=== PATIENT | female | born 1965 | race American Indian/Alaskan Native ===

== ENCOUNTER 2017-07-04 07:29 | Outpatient (CLI) | payer OTHER ==
--- NOTE | 2017-07-04 16:41 | Magnetic Resonance Report ---
FINAL REPORT EXAM: MR LUMBAR SPINE WO CON HISTORY: RIGHT LOW BACK PAIN/POSSIBLE L4 RADICULITIS COMPARISON: None. TECHNIQUE: Multiplanar multisequential imaging of the lumbar spine was performed without administration of IV contrast. FINDINGS: There is normal alignment. The vertebral body heights are maintained. There is normal signal of the bone marrow. The conus medullaris is at the level of the L1 vertebral body. There is normal signal and contour of the lower spinal cord and the filum terminale. T12-L1: Normal disc height and signal. No central or foraminal stenosis. L1-L2: Normal disc height and signal. No central or foraminal stenosis. L2-L3: Normal disc height and signal. No central or foraminal stenosis. L3-L4: Normal disc height and signal. No central or foraminal stenosis. Mild facet arthropathy. L4-L5: Mild posterior disc bulge. Moderate facet arthropathy. No central stenosis. Mild bilateral foraminal stenosis. There is still fat around the nerve roots. L5-S1: Mild loss of disc height and signal. Mild posterior disc bulge. No central or foraminal stenosis. The paravertebral soft tissues are normal. IMPRESSION: Mild degenerative changes at L4-L5 and L5-S1 with mild bilateral foraminal stenosis at L4-L5. There is preservation of the fat around the nerve roots.
== END 2017-07-04 07:30 | disposition home or self-care (01) ==
LOC: MRI 07:29
PROVIDERS: ATTEND Physical Medicine & Rehabilitation
DX: M48.061 Spinal stenosis, lumbar region without neurogenic claudication (principal); M51.26 Other intervertebral disc displacement, lumbar region; M51.37 Other intervertebral disc degeneration, lumbosacral region; M47.897 Other spondylosis, lumbosacral region; M12.88 Other specific arthropathies, not elsewhere classified, other specified site
CPT/HCPCS: 72148